=== PATIENT | female | born 1985 | race Hispanic/Latino ===

== ENCOUNTER 2017-06-25 07:01 | Observation (INO) | payer OTHER ==
[2017-06-24 09:25] VITALS: BMI 20.5
[2017-06-25] MEDS ORDERED: ceFAZolin IV 1 gm in Dextrose 1 GM/50 ML BAG IVPB ONE (07:25)
[2017-06-25] MEDS ORDERED: Succinylcholine 200 mg/10 ml Inj IV ONE (07:39)
[2017-06-25] MEDS ORDERED: Lidocaine 4% (Laryng-O-Jet) Kit MM ONE (07:39)
[2017-06-25] MEDS ORDERED: Propofol 10 mg/ml Inj (20 ML) ONE (07:39)
[2017-06-25] MEDS ORDERED: Rocuronium 10 mg/ml (5 ml) ONE (07:39)
[2017-06-25 08:04] LABS: HEMOGLOBIN 14.3 g/dL (12.0-16.0); MEAN CELL VOLUME 92.1 fl (81.0-99.0); MEAN CORPUSCULAR HEMOGLOBIN 30.8 pg (27.0-31.0); MEAN CORPUSCULAR HGB CONC 33.5 g/dL (33.0-37.0); RBC 4.64 Mil/uL (3.80-5.20); RED CELL DISTRIBUTION WIDTH 13.7 % (11.5-14.5); WHITE BLOOD COUNT 5.7 K/uL (4.8-10.8)
[2017-06-25] MEDS ORDERED: ePHEDrine 50 mg/ml Inj ONE (08:50)
[2017-06-25] MEDS ORDERED: Midazolam 2 MG/2 ML VIAL ONE (08:50)
[2017-06-25] MEDS ORDERED: Lactated Ringer's 1,000 ML IV ONE ×2 (08:55→09:05)
[2017-06-25] MEDS: Bupivacaine 0.5% Inj(30mL) ONE ×2 (09:30→09:35)
[2017-06-25] MEDS ORDERED: Dexamethasone 4 mg/1 ml ONE (09:39)
[2017-06-25] MEDS: HYDROmorphone 0.5 mg/0.5 ml ISec IVP PRN ×4 (11:10→12:05)
[2017-06-25] MEDS ORDERED: Oxycodone/Acetaminophen 5/325 mg Tab PO PRN (11:12)
[2017-06-25] MEDS ORDERED: Lactated Ringer's 1,000 ML IV SCH (11:15)
[2017-06-25] MEDS ORDERED: Oxycodone/Acetaminophen 5/325 mg Tab PO ONE (15:15)
[2017-06-26 01:10] VITALS: RESP 18
[2017-06-26 11:20] VITALS: BP 137/83; PULSE 83; TEMP 98.7; O2SAT 99
--- NOTE | 2017-06-30 09:02 | PCM.OP ---
Operative Report - Operative Report Date of Surgery/Procedure: 06/25/17 Time of Surgery/Procedure: 08:00 Surgeon: Dr. Maxx Bentley Mutuel Clerk: Dr. Yoandy Moura Anesthesia/Sedation: general/Dr. Main Pre-Operative Diagnosis: abdominal pain and endometriosis Post-Operative Diagnosis: endometriosis with mutliple intraabdominal adhesions and involvment of multiple areas of the reectum (times two) Indication for Surgery: as above Operative Findings: as above Procedure/Operation Description: 1-extensive lysis of intraabdominal intestinal adhesions. 2-excision multiple rectal wall endometriosis (times two). Brief History: This 31 year old woman had already been brought to the operating room by Dr. Moura when he noted the extensive adhsions and rectal invovlment of endometriosis. Intraoperative gnmeral surgery consultation was requetred. Descriptionj of the Procedure: Dr Martell cano initiated the robotic procedure (sparate dictation Dr. Moura). After taking over the robotic console mutilple dense intestinal adhesions were lysed with blunt and sharp dissection. The two areas of the rectal invovlemnt were noted in the very distal rectum. Using electrocautery the first more proximal lesion was incised circumferentially and excided en-bloc with blunt and sharp dissection. This first lesion was marked and sent to pathology as a separate spceimen. The second , more distal lesion, was excided en-bloc in a similar fashion. Hemnostasis was deemed adequate. the operation was then turned over to Dr. Moura (separate dictation Dr. Moura). Estimated Blood Loss: 2 cc Complications: none Discharge & Condition: stable
--- NOTE | 2017-07-08 12:08 | OP ---
PROCEDURE DATE: 06/25/2017 PREOPERATIVE DIAGNOSES: Pelvic pain, dysmenorrhea, dyspareunia, bladder pain, rule out pelvic endometriosis. POSTOPERATIVE DIAGNOSES: Pelvic pain, dysmenorrhea, dyspareunia, bladder pain, rule out pelvic endometriosis plus stage III endometriosis with fallopian tube, ovarian, anterior rectal and bladder involvement and extensive pelvis adhesions. PROCEDURE PERFORMED: Cystoscopy with bilateral ureteral catheterization, hysteroscopy, robotic da Yariel laparoscopy, lysis of adhesions, excision of endometriosis, bilateral ureterolysis, ovariolysis, excision of bladder mass and to be dictated separately by Dr. Bentley, excision of anterior rectal endometriosis. He will dictate this part separately. SURGEON: Yoandy Moura MD. BUSINESS INTELLIGENCE MANAGER: Assisted by Maxx Bentley MD. ESTIMATED BLOOD LOSS: Minimal. COMPLICATIONS: None. SAMPLES: Multiple samples sent to pathology including left uterosacral, posterior cervical, anterior rectal, right ovarian fossa, right ovarian lesions, anterior bladder mass, urinary bladder mass, round ligament, fallopian tube endometriosis, right periureteral, left periureteral, left ovarian adhesion and uterine adhesions. INDICATION FOR THE PROCEDURE: The patient is a 31-year-old female with a history of a prior myomectomy, pelvic pain, dyspareunia and dysmenorrhea. The patient had a full evaluation prior to the surgery revealing evidence of a malpositioned left ovary secondary to adhesions and she was counseled with regards to the risks and benefits of the procedure and the likelihood of the procedure to solve her problems. She also understood that her procedure will be more complex due to the fact that she had a prior myomectomy which is usually associated with pelvic adhesions. Prior to the surgery, the patient was again counseled. She signed the consent and she was taken to the OR. DESCRIPTION OF THE PROCEDURE: After adequate anesthesia was obtained, the patient was placed in the dorsal lithotomy position. She was prepped and draped and surgeons gowned and gloved. A time-out was taken according to the hospital policy and the procedure was commenced. A cystoscope inserted into the urethra under direct visualization and the bladder was visualized revealing to be free of lesions or stones. Both ureteral orifices were in the right anatomical position. An open-ended 5-Georgian ureteral catheter was inserted into the left ureter all the way to the distal ureter and 5 mL of IC-Green were injected. The catheter was then taken out. At this point, on the right hand side, a catheter was inserted into the left ureter and up to the distal ureter and 5 mL of IC-Green were injected under direct visualization. This procedure was necessary to identify the ureter given the complexity of the procedure. At this point, A 16-Georgian Jordan catheter was placed in the bladder. Attention was in the vaginal area where a speculum was placed in the vagina. The anterior lip of the cervix was grasped and the cervix gently dilated. A hysteroscopy was performed revealing a normal cavity. At this point, a uterine manipulator was placed in the uterus and attention was on the abdomen. An open laparoscopy was performed using a standard technique by making an incision on the umbilicus and working bluntly all the way through the fascia making an incision in the fascia and entered the peritoneum in a blunt fashion. A cannula was then inserted and the abdomen insufflated. Under direct visualization, 3 additional ports were inserted, left upper quadrant, left mid quadrant and right upper quadrant, all this under hyperdistention and direct visualization. At this point, the da Yariel Xi robot was docked and the procedure commenced. Findings were as follow. The upper abdomen was visualized revealing to be free of adhesions or lesions. The appendix was normal. The pelvis was visualized, appearing to have very significant adhesion. More precisely, the left ovary was completely antiversoflexed and adherent to the anterior abdominal wall and the bladder and the left fallopian tube was completely twisted over the bladder. There were multiple peritoneal implants of endometriosis in the anterior compartment both on the anterior aspect of the peritoneum of the abdominal wall and on the bladder itself. Thick adhesions involved also the anterior aspect of the uterus, which was covered in clear adhesive disease. There were adhesions also in the posterior aspects of the uterus. There were endometriosis implants in the posterior cervical area in the anterior rectum and in the left and right pelvic sidewalls. There were also endometriosis implant on the fallopian tubes both on the left and on the right side and also endometriosis implants up higher on the pelvic brim on the right hand side. At this point, attention was first on the left hand side where the adhesions between the abdominal wall and the uterus and the ovary were taken down in a sharp fashion. The ovary was freed as well as the fallopian tube on the left hand side and repositioned in the normal anatomical position. The ovary was also firmly adherent to the sigmoid through very thick adhesions and these were taken down separately by Dr. Maxx Bentley from General Surgery. At this point, once these adhesions were taken down, attention was in the posterior compartment where an area of endometriosis was identified in the posterior aspect of the uterus and a wide excision was performed in toto by Dr. Bentley from General Surgery including a portion of the anterior rectum. Attention was then on the left pelvic sidewall where after identifying the ureter, the retroperitoneal space was entered and the ureter lateralized and the peritoneum medialized and a large area of endometriosis in the left ovarian fossa was completely removed. Attention was then on the right hand side where again the ovary was elevated and the peritoneum was entered retroperitoneally and the ureter was progressively dissected and lateralized and a large area of peritoneum containing endometriosis was also excised and sent to pathology. An additional area on the iliac vessels at the bifurcation with the implant of endometriosis was also excised directly with great care not to injure the vessels. Attention then was on the anterior compartment where a bladder mass suggestive of endometriosis was excised. The bladder muscularis was not entered and the mass was excised in toto with extremes of care not to enter the bladder. The bladder was then filled to make sure that there was no defect or injury in the bladder. Additional implants of endometriosis were identified on the left fallopian tube. These were excised and removed without damaging the fallopian tube itself. Additionally, implants were visible on the right fallopian tube and these were also excised directly on the serosa of the fallopian tube without damaging the tube itself. Once these multiple adhesions were excised, additional adhesions and the endometriosis was excised. Small areas of endometriosis on the ovaries which were millimeters in size were ablated. An additional ablation of all the inflammatory areas on top of the uterus was also performed. At this point, it was checked for hemostasis that appeared to be excellent. The pelvis was irrigated. The da Yariel robot was undocked. The abdomen was desufflated and the instruments were removed. The abdomen was closed in layers with 0 PDS for the fascia and 4-0 Monocryl for the skin. At the end of the procedure, all tapes and instruments counts were correct. The patient tolerated the procedure well, was taken to recovery in excellent condition. Yoandy Moura MD [facility] # [id number]
== END 2017-06-26 11:00 | disposition home or self-care (01) ==
LOC: H.OPSURG 07:01 → H.PEDS 20:22
PROVIDERS: ADMIT Obstetrics & Gynecology Reproductive Endocrinology; ATTEND Obstetrics & Gynecology Reproductive Endocrinology
DX: N80.2 Endometriosis of fallopian tube (principal); N94.10 Unspecified dyspareunia; N94.6 Dysmenorrhea, unspecified; N80.1 Endometriosis of ovary; N80.5 Endometriosis of intestine; N73.6 Female pelvic peritoneal adhesions (postinfective); N80.8 Other endometriosis; N32.9 Bladder disorder, unspecified; N80.3 Endometriosis of pelvic peritoneum; N80.0 Endometriosis of uterus
CPT/HCPCS: 36415; 45171; 49203; 51530; 58999; 85027; 86850; 86900; 88305; C1729; G0378; J0330; J0690; J1100; J1170; J1885; J2001; J2250; J2405; J2704; J2765; J3010; J7030; J7040; J7120

== ENCOUNTER 2017-11-12 12:46 | Observation (INO) | payer OTHER ==
[2017-11-12 12:48] VITALS: BMI 20.5
[2017-11-12] MEDS ORDERED: Lactated Ringer's 1,000 ML IV ONE ×2 (13:30→15:06)
[2017-11-12 13:43] LABS: BASO % 0.1 % (0.0-2.0); HEMOGLOBIN 13.6 g/dL (12.0-16.0); LYMPH # 2.5 K/uL (1.0-4.3); LYMPH % 6.9 % (20.0-40.0); MEAN CELL VOLUME 92.9 fl (81.0-99.0); MEAN CORPUSCULAR HEMOGLOBIN 31.3 pg (27.0-31.0); MEAN CORPUSCULAR HGB CONC 33.7 g/dL (33.0-37.0); MEAN PLATELET VOLUME 7.4 fl (7.2-11.7); MONO # 0.8 K/uL (0.0-0.8); MONO % 2.3 % (0.0-10.0); NEUT # 32.9 K/uL (1.8-7.0); NEUT % 90.7 % (50.0-75.0); PLATELET COUNT 358 K/uL (130-400); RBC 4.36 Mil/uL (3.80-5.20); RED CELL DISTRIBUTION WIDTH 13.9 % (11.5-14.5); WHITE BLOOD COUNT 36.3 K/uL (4.8-10.8)
--- NOTE | 2017-11-12 13:46 | ED PDOC ---
HPI: General Adult Time Seen by Provider: 11/12/17 13:09 Chief Complaint (Nursing): Female Genitourinary History Per: Patient Additional Complaint(s): Pt. states on Thursday she had some vaginal bleeding which resolved after 1 day. She saw her OBGYN Dr. Ortiz who ordered an US yesterday and was informed today that there was no FHT. She was advised to come to ED today for D&C. Denies pain, vaginal bleeding, weakness. Past Medical History Reviewed: Historical Data, Nursing Documentation, Vital Signs Vital Signs: Last Vital Signs Temp 98.2 F 11/12/17 16:35 Pulse 72 11/12/17 16:35 Resp 18 11/12/17 16:35 BP 120/76 11/12/17 16:35 Pulse Ox 100 11/12/17 16:35 - Medical History PMH: Denies: Chronic Kidney Disease Other PMH: endometriosis - Surgical History Other surgeries: laparascopy for endometriosis - Family History Family History: States: No Known Family Hx - Home Medications Home Medications: Ambulatory Orders Medication Instructions Recorded Estradiol [Estrace] 2 mg PO DAILY 11/12/17 Filgrastim [Neupogen] 17 unit SC HS 11/12/17 Lactobacillus Combination No.8 1 cap PO DAILY 11/12/17 [Adult Probiotic] MetFORMIN ER [Glucophage XR] 1,500 mg PO DAILY 11/12/17 No122/Iron/Folic Acid 1 tab PO DAILY 11/12/17 [ Multi Tablet] predniSONE [predniSONE Tab] 10 mg PO BID 11/12/17 - Allergies Allergies/Adverse Reactions: Allergies Allergy/AdvReac Type Severity Reaction Status Date / Time No Known Allergies Allergy Verified 06/24/17 09:25 Review of Systems ROS Statement: Except As Marked, All Systems Reviewed And Found Negative Physical Exam - Physical Exam Appears: Positive for: Well, Non-toxic, No Acute Distress Skin: Positive for: Normal Color, Warm. Negative for: Rash Eye Exam: Positive for: Normal appearance Cardiovascular/Chest: Positive for: Regular Rate, Rhythm Respiratory: Positive for: Normal Breath Sounds Gastrointestinal/Abdominal: Positive for: Normal Exam, Soft. Negative for: Tenderness Neurologic/Psych: Positive for: Alert, Oriented - Laboratory Results Result Diagrams: 11/12/17 13:21 11/12/17 13:21 - ECG O2 Sat by Pulse Oximetry: 100 - Progress ED Course And Treament: Labs ordered. 1410 WBC: 36.3 Case d/w Dr. Moura who will take pt. to OR today. Informed of lab results. States that pt. is on neupogen which explains elevated WBC. Disposition - Clinical Impression Clinical Impression: demise - Patient ED Disposition Is Patient to be Admitted: No - Disposition Disposition Time: 14:11 Condition: STABLE
[2017-11-12 13:53] LABS: ALB/GLOB RATIO 1.3 (1.0-2.1); ALBUMIN 4.6 g/dL (3.5-5.0); ALT/SGPT 48 U/L (9-52); AST/SGOT 21 U/L (14-36); BLOOD UREA NITROGEN 9 mg/dl (7-17); GFR AFRICAN-AMERICAN > 60; GFR NON-AFRICAN AMERICAN > 60
[2017-11-12 13:57] LABS: SQUAMOUS EPITHIAL 1 /hpf (0-5); URINE BACTERIA RARE (<OCC); URINE BILIRUBIN NEGATIVE (NEGATIVE); URINE BLOOD NEGATIVE (NEGATIVE); URINE CLARITY SLIGHTY-CLOUDY (Clear); URINE COLOR YELLOW (YELLOW); URINE GLUCOSE (UA) NEG (Normal); URINE LEUKOCYTE ESTERASE NEG Leu/uL (Negative); URINE PROTEIN NEGATIVE (NEGATIVE); URINE UROBILINOGEN 0.2-1.0 mg/dL (0.2-1.0)
[2017-11-12 14:00] LABS: INR 1.1 (0.9-1.2); PARTIAL THROMBOPLASTIN TIME 27.9 Seconds (25.6-37.1); PROTHROMBIN TIME 11.7 Seconds (9.8-13.1)
[2017-11-12] MEDS ORDERED: Succinylcholine 200 mg/10 ml Inj IV ONE (14:11)
[2017-11-12] MEDS ORDERED: Propofol 10 mg/ml Inj (20 ML) ONE ×2 (14:11→15:29)
[2017-11-12] MEDS ORDERED: Oxytocin 20 units in LR 0 ML IV ONE (14:15)
[2017-11-12] MEDS ORDERED: Midazolam 2 MG/2 ML VIAL ONE (14:25)
[2017-11-12 14:27] LABS: LYMPHOCYTE 7 % (20-50); MONOCYTE 5 % (0-10); NEUTROPHIL 88 % (42-75); PLATELET ESTIMATE NORMAL (NORMAL); TOTAL CELLS COUNTED 100
[2017-11-12 14:28] LABS: ANISOCYTOSIS SLIGHT; LARGE PLATELETS PRESENT; OVALOCYTES SLIGHT
[2017-11-12] MEDS ORDERED: Lidocaine 2% Jelly (5 ml) TOP ONE (14:37)
[2017-11-12 15:09] VITALS: O2SAT 100
[2017-11-12] MEDS ORDERED: HYDROmorphone 0.5 mg/0.5 ml ISec ONE (15:44)
[2017-11-12] MEDS: HYDROmorphone 0.5 mg/0.5 ml ISec IVP PRN ×2 (15:45→16:00)
[2017-11-12] MEDS ORDERED: Oxycodone/Acetaminophen 5/325 mg Tab PO PRN (16:06)
[2017-11-12 16:14] VITALS: RESP 18
[2017-11-12 16:51] VITALS: BP 120/76; PULSE 72; TEMP 98.2
--- NOTE | 2017-11-17 14:46 | OP ---
PROCEDURE DATE: 11/12/2017 PREOPERATIVE DIAGNOSIS: Incomplete . POSTOPERATIVE DIAGNOSIS: Incomplete . PROCEDURE PERFORMED: Emergency suction D&C. SURGEON: Yoandy Moura MD TYPE OF ANESTHESIA: LMA. ESTIMATED BLOOD LOSS: 200 mL. COMPLICATIONS: None. DESCRIPTION OF PROCEDURE: After the patient was taken to the OR directly from the emergency room, she was bleeding and she had signed the consent, anesthesia was induced, the patient was placed in the dorsal lithotomy position. After prepping and draping and taking a time-out according to the hospital policy, a speculum was placed in the vagina. The anterior lip of the cervix was grasped and the uterine sound was used and it sounded to size 8 and exam under anesthesia was also performed. The cervix was gently dilated and a 7-Bolivian blunt suction curette was inserted into the uterine cavity without any complications. Abundant products of conception were obtained. It was not necessary to perform a sharp curetting as the patient was not bleeding. At this point, the uterus was gently massaged. The patient received prophylactic antibiotics. She was taken to the recovery room in excellent condition. Yoandy Moura MD [place]
== END 2017-11-12 16:55 | disposition home or self-care (01) ==
LOC: H.ER 12:46 → H.ERHOLD 14:21
PROVIDERS: ADMIT Obstetrics & Gynecology Reproductive Endocrinology; ATTEND Obstetrics & Gynecology Reproductive Endocrinology
DX: O03.4 Incomplete spontaneous abortion without complication (principal)
CPT/HCPCS: 59812; 80053; 81003; 81025; 85025; 85610; 85730; 86850; 86900; 88305; 96360; 96361; 99285; G0378; J0330; J0690; J1170; J2001; J2210; J2250; J2704; J2765; J3010; J7030; J7120